=== PATIENT | female | born 1955 | race Two or more races ===

== ENCOUNTER → 2024-05-28 | Outpatient (CLI) | payer OTHER, SELFPAY ==
--- NOTE | 2024-05-28 16:19 | XR_ITS ---
Examination: Foot, right, 3 views Technique: AP, oblique, lateral views foot, 3 views Date and time of exam: May 28, 2024 1623 hrs. Indications: Painful orthopedic hardware. Findings: Orthopedic screw distal fifth metatarsal projects 1 mm outside the cortex of the lateral fifth metatarsal No acute fracture No cortical bone destruction Impression: Orthopedic screw distal fifth metatarsal as above
== END | disposition home or self-care (01) ==
PROVIDERS: Referring Provider Student in an Organized Health Care Education/Training Program; Visit Provider Student in an Organized Health Care Education/Training Program
DX: T84.213A Breakdown (mechanical) of internal fixation device of bones of foot and toes, initial encounter (principal)
CPT/HCPCS: 73630